=== PATIENT | female | born 1985 | race Caucasian/White ===

== ENCOUNTER 2016-06-11 13:19 | Emergency (ER) | payer OTHER ==
[2016-06-11 14:45] VITALS: BP 120/73
--- NOTE | 2016-06-11 15:38 | UC ---
Back Pain HPI - HPI Summary HPI Summary: 31 female presents with complaints of lower back pain that began yesterday morning 06/11/16. Patient states approximately 5 days ago she experienced some symptoms of urinary frequency and urgency that resolved within 2 days and after drinking a lot of cranberry juice. Patient denies hematuria and current urinary symptoms. Denies due to control essure. Denies pelvic pain, discharge, abdominal pain. No trouble going to the bathroom. Has a history of a kidney infection and she wanted to make sure that wasn't the cause of her current back pain after experiencing the urinary symptoms. No other complaints besides the back pain that she describes as the middle left side that is vague, dull and achey with intermittent sharp pain. Describes it as a "balloon that is filled up in there, not pain". pain 06/22. denies periods of excruciating, significant pain. Took ibuprofen for the pain this morning which did give her relief. Denies fever/chills, recent injury/trauma, bruising, swelling, redness or skin rash. - History of Current Complaint Chief Complaint: UCGU Stated Complaint: KIDNEY COMPLAINT Time Seen by Provider: 06/11/16 15:37 Hx Obtained From: Patient Hx Last Menstrual Period: 06/02/16 ?: No Onset/Duration: Sudden Onset, Lasting Days Severity Initially: Mild Severity Currently: Mild Pain Intensity: 3 Pain Scale Used: 0-10 Numeric Back Pain: Is Discrete @ - left mid-back around kidney area, without radiation Character: Dull, Aching Aggravating: Nothing Alleviating: OTC Meds - ibuprofen Associated Signs And Symptoms: Negative: Weakness, Numbness, Bladder Incontinence, Bowel Incontinence, Pain with Weight Bearing - Risk Factors Cauda Equina Risk Factors: Negative - Allergies/Home Medications Allergies/Adverse Reactions: Allergies Allergy/AdvReac Type Severity Reaction Status Date / Time Amoxicillin AdvReac Intermediate GI Upset Verified 06/11/16 14:45 Home Medications: Home Medications Ibuprofen TAB* [Advil TAB*] 400 mg PO Q6H PRN 06/11/16 [History Confirmed ] PMH/Surg Hx/FS Hx/Imm Hx Cardiovascular History Of: Denies: Cardiac Disorders Respiratory History Of: Denies: Asthma - Surgical History Surgical History: Yes Surgery Procedure, Year, and Place: C-SECT X 3 - Family History Known Family History: Negative: Cardiac Disease, Hypertension, Diabetes - Social History Alcohol Use: Rare Substance Use Type: None Smoking Status (MU): Heavy Every Day Tobacco Smoker Type: Cigarettes Amount Used/How Often: 1/2 PPD Length of Time of Smoking/Using Tobacco: started at age 16 Have You Smoked in the Last Year: Yes When Did the Patient Quit Smoking/Using Tobacco: 11/23/14 Review of Systems Constitutional: Negative Skin: Negative Eyes: Negative ENT: Negative Respiratory: Negative Cardiovascular: Negative Gastrointestinal: Diarrhea - x 2 days Genitourinary: Dysuria, Frequency, Urgency - approximately 5 days ago that has since resolved, no current symptoms Motor: Negative Neurovascular: Negative Musculoskeletal: Negative Neurological: Negative Psychological: Negative All Other Systems Reviewed And Are Negative: Yes Physical Exam Triage Information Reviewed: Yes Appearance: Well-Appearing, No Pain Distress, Well-Nourished Vital Signs: Initial Vital Signs Temp 97.6 F 06/11/16 14:38 Pulse 69 06/11/16 14:38 Resp 16 06/11/16 14:38 BP 120/73 06/11/16 14:38 Pulse Ox 100 06/11/16 14:38 Vital Signs Reviewed: Yes Eyes: Positive: Conjunctiva Clear ENT: Positive: Normal ENT inspection, Hearing grossly normal, Pharynx normal Neck: Positive: Supple, Nontender, No Lymphadenopathy Respiratory: Positive: Chest non-tender, Lungs clear, Normal breath sounds, No respiratory distress, No accessory muscle use Cardiovascular: Positive: RRR, No Murmur, Pulses Normal, Brisk Capillary Refill Abdomen Description: Positive: Nontender, No Organomegaly, Soft. Negative: CVA Tenderness (R), CVA Tenderness (L), Distended, Guarding, Hepatomegaly, Splenomegaly Bowel Sounds: Positive: Present Musculoskeletal: Positive: Strength Intact, ROM Intact, Other: - non tender, no sign of ecchymosis or edema Neurological Exam: Normal Psychological Exam: Normal Skin Exam: Normal Skin: Negative: rashes Back Pain Course/Dx - Course Course Of Treatment: UA was obtained and unremarkable. No sign of UTI, pyelonephritis or nephrolithiasis at this time. due to history and PE findings patient was in agreement to wait out her symptoms for the next few days. aware of worsening or new symptoms to watch out for and return. if persist without change encouraged to follow up [facility] PCP for further evaluation. possibly could have slept the wrong way and related it to recent urinary symptoms that resolved. - Differential Dx/Diagnosis Differential Diagnosis/HQI/PQRI: Strain, Sprain, Other - UTI, Pyelonephritis, nephrolithiasis Provider Diagnoses: back pain of unknown etiology Discharge - Discharge Plan Condition: Stable Disposition: HOME Patient Education Materials: Back Pain (ED) Referrals: William Oleary MD [Primary Care Provider] - Additional Instructions: Take OTC ibuprofen (Advil) for pain and discomfort. Follow-up with your PCP within the next 7 days for further evaluation if symptoms persist. If symptoms worsen (increasing pain, fever/chills, urinary symptoms or discharge) or new symptoms develop please seek medical attention promptly.
== END 2016-06-11 16:05 | disposition home or self-care (01) ==
LOC: UCCORT 13:19
DX: M54.5 Low back pain (principal); Z88.1 Allergy status to other antibiotic agents; Z87.891 Personal history of nicotine dependence
CPT/HCPCS: 99211; G0463

== ENCOUNTER 2016-07-16 14:06 | Emergency (ER) | payer OTHER ==
[2016-07-16 15:46] VITALS: BP 113/79
[2016-07-16] MEDS ORDERED: Ketorolac INJ* 60 MG/2 ML VIAL IM ONE (16:31)
--- NOTE | 2016-07-16 16:31 | UC ---
Headache HPI - HPI Summary HPI Summary: headache right side of her head, now with right sided neck pain x 5 days. States she has tried acetaminophen, ibuprofen and excedrin without relief. Hasn 't taken anything in the past few days because nothing was helping. No hx trauma. No hx migraine. No hx fever. Had the flu a few weeks ago, but felt like she got better from that. Is not photophobic, no aura preceded it. - History Of Current Complaint Chief Complaint: UCHeadache Stated Complaint: HEADACHE Time Seen by Provider: 07/16/16 16:20 Hx Obtained From: Patient Hx Last Menstrual Period: 06/29/16 ?: No Onset/Duration: Gradual Onset, Lasting Days, Still Present Onset Of Symptoms: Gradual Initially Headache Was: Mild Currently Pain Is: Current Pain Scale(0-10)= - 7 Pain Scale Used: 0-10 Numeric Timing: Constant Character: Dull Location of Headache: Parietal Aggravating Factor: Other - movement Allevating Factors: Nothing Associated Signs And Symptoms: Positive: Neck Pain, Neck Stiffness. Negative: Dizziness, Nausea, Vomiting, Sinus Pressure, Fever - Risk Factors SAH Risk Factors: Smoking Meningitis Risk Factors: Negative SDH Risk Factors: Negative Temporal Arteritis Risk Factors: Female, - Allergies/Home Medications Allergies/Adverse Reactions: Allergies Allergy/AdvReac Type Severity Reaction Status Date / Time Amoxicillin AdvReac Intermediate GI Upset Verified 06/11/16 14:45 PMH/Surg Hx/FS Hx/Imm Hx Previously Healthy: Yes Cardiovascular History Of: Denies: Cardiac Disorders Respiratory History Of: Denies: Asthma - Surgical History Surgical History: Yes Surgery Procedure, Year, and Place: C-SECT X 3 - Family History Known Family History: Positive: Cardiac Disease, Other - no hx aneurysms, or migraine Negative: Hypertension, Diabetes - Social History Occupation: Employed Full-time - machine shop Alcohol Use: Occasionally Substance Use Type: None Smoking Status (MU): Heavy Every Day Tobacco Smoker Type: Cigarettes Amount Used/How Often: 1/2 PPD Length of Time of Smoking/Using Tobacco: started at age 16 Have You Smoked in the Last Year: Yes When Did the Patient Quit Smoking/Using Tobacco: 11/23/14 Review of Systems Constitutional: Negative Skin: Negative Eyes: Negative ENT: Negative Respiratory: Negative Cardiovascular: Negative Gastrointestinal: Negative Genitourinary: Negative Motor: Negative Neurovascular: Negative Musculoskeletal: Negative Neurological: Headache Psychological: Negative All Other Systems Reviewed And Are Negative: Yes Physical Exam Triage Information Reviewed: Yes Appearance: Well-Nourished, Ill-Appearing, Pain Distress Vital Signs: Initial Vital Signs Temp 98.2 F 07/16/16 15:36 Pulse 78 07/16/16 15:36 Resp 16 07/16/16 15:36 BP 113/79 07/16/16 15:36 Pulse Ox 100 07/16/16 15:36 Vital Signs Reviewed: Yes Eyes: Positive: Conjunctiva Clear ENT: Positive: Hearing grossly normal, Pharynx normal, TMs normal. Negative: Nasal congestion, Muffled/hoarse voice Neck: Positive: Supple, Tenderness @ - right trapezius Respiratory: Positive: No respiratory distress Cardiovascular: Positive: RRR, Pulses Normal, Brisk Capillary Refill Musculoskeletal: Positive: Strength Intact, ROM Intact Neurological: Positive: Alert, Muscle Tone Normal, Other: - A&O x 3, CN II-XII intact, motor 5/5, sensation intact, gait normal, non focal Psychological Exam: Normal Skin Exam: Normal Re-Evaluation - Re-Evaluation First Eval Re-Evaluation Time: 16:55 - headache is gone. Change: Improved Headache Course/Dx - Differential Dx/Diagnosis Differential Diagnosis/HQI/PQRI: Migraine, Sinus Headache, Tension Headache Provider Diagnoses: acute tension headache Discharge - Discharge Plan Condition: Stable Disposition: HOME Prescriptions: Cyclobenzaprine TAB* [Flexeril 10 MG TAB*] 10 mg PO TID PRN #20 tab PRN Reason: Pain Ibuprofen TAB* [Motrin TAB* 800 MG] 800 mg PO Q6H #20 tab Patient Education Materials: Tension Headache (ED), Acute Headache (ED) Forms: *Work Release Referrals: William Oleary MD [Primary Care Provider] -
[2016-07-16] MEDS ORDERED: Acetaminophen TAB* 325 MG PO ONE (16:46)
== END 2016-07-16 17:06 | disposition home or self-care (01) ==
LOC: UCCORT 14:06
DX: G44.209 Tension-type headache, unspecified, not intractable (principal); Z88.1 Allergy status to other antibiotic agents; F17.210 Nicotine dependence, cigarettes, uncomplicated
CPT/HCPCS: 96372; 99212; A9270-GY; G0463; J1885

== ENCOUNTER 2018-05-26 16:14 | Emergency (ER) | payer BC, OTHER ==
--- NOTE | 2018-05-26 16:28 | UC ---
FLU HPI - HPI Summary HPI Summary: 33 yo female presents with sinus pain/pressure/congestion for 3 days. She has been taking ibuprofen and an OTC cold medicine with no relief. She is concerned because her daughter was recently dx'd with the flu and pt is worried she may have it. Denies fever, fatigue, cough, sore throat, SOB, abdominal pain, n/v. - History of Current Complaint Stated Complaint: FLU LIKE SYMPTOMS Time Seen by Provider: 05/26/18 16:28 Hx Obtained From: Patient Hx Last Menstrual Period: 06/29/16 Onset/Duration: Gradual Onset Severity Currently: Mild Severity Initially: Moderate Pain Intensity: 3 Pain Scale Used: 0-10 Numeric - Allergy/Home Medications Allergies/Adverse Reactions: Allergies Allergy/AdvReac Type Severity Reaction Status Date / Time amoxicillin Allergy GI Upset Verified 05/26/18 16:33 Home Medications: Home Medications Cpm/PE/Dm/Acetaminophen/Guaifn [Tylenol Cold-Flu Day-Nt Caplet] 1 each PO DAILY 05/26/18 [History Confirmed 05/26/18] PMH/Surg Hx/FS Hx/Imm Hx - Additional Past Medical History Additional PMH: None - Surgical History Surgical History: Yes Surgery Procedure, Year, and Place: C-SECT X 3 - Family History Known Family History: Positive: Cardiac Disease, Other - no hx aneurysms, or migraine Negative: Hypertension, Diabetes - Social History Alcohol Use: Occasionally Substance Use Type: None Smoking Status (MU): Heavy Every Day Tobacco Smoker Type: Cigarettes Amount Used/How Often: 1/2 PPD Length of Time of Smoking/Using Tobacco: started at age 16 Have You Smoked in the Last Year: Yes When Did the Patient Quit Smoking/Using Tobacco: 11/23/14 Review of Systems All Other Systems Reviewed And Are Negative: Yes Constitutional: Positive: Negative Skin: Positive: Negative Eyes: Positive: Negative ENT: Positive: Nasal Discharge, Sinus Congestion, Sinus Pain/Tenderness Respiratory: Positive: Negative Cardiovascular: Positive: Negative Gastrointestinal: Positive: Negative Neurovascular: Positive: Negative Neurological: Positive: Negative Psychological: Positive: Negative Physical Exam - Summary Physical Exam Summary: GENERAL: NAD. WDWN. No pain distress. SKIN: No rashes, sores, lesions, or open wounds. HEENT: Head: AT/NC Eyes: EOM intact. Conjunctiva clear without inflammation or discharge. Ears: Hearing grossly normal. TMs intact, no bulging, erythema, or edema. Nose: Nasal mucosa pink and moist. NTTP maxillary and frontal sinus. Throat: Posterior oropharynx without exudates, erythema, or tonsillar enlargement. Uvula midline. NECK: Supple. Nontender. No lymphadenopathy. CHEST: CTAB. No r/r/w. No accessory muscle use. Breathing comfortably and in no distress. CV: RRR. Without m/r/g. Pulses intact. Cap refill <2seconds NEURO: Alert. PSYCH: Age appropriate behavior. Triage Information Reviewed: Yes Vital Signs: Vital Signs: Temp Pulse Resp BP Pulse Ox 97.9 F 84 16 135/84 100 05/26/18 16:29 05/26/18 16:29 05/26/18 16:29 05/26/18 16:29 05/26/18 16:29 Laboratory Tests 05/26/18 16:39 Influenza A (Rapid) Negative Influenza B (Rapid) Negative Vital Signs Reviewed: Yes Flu Course/Dx - Course Course Of Treatment: Suspect viral sinusitis. Advised to try OTC mucinex, flonase, and zyrtec. F/u if symptoms do not improve. - Differential Dx/Diagnosis Provider Diagnosis: Viral sinusitis Discharge - Sign-Out/Discharge Documenting (check all that apply): Patient Departure All imaging exams completed and their final reports reviewed: No Studies - Discharge Plan Condition: Stable Disposition: HOME Patient Education Materials: Viral Syndrome (ED) Forms: *Work Release Referrals: William Oleary MD [Primary Care Provider] - Additional Instructions: If you develop a fever, shortness of breath, chest pain, new or worsening symptoms - please call your PCP or go to the ED. - Billing Disposition and Condition Condition: STABLE Disposition: Home
[2018-05-26 16:32] VITALS: BP 135/84
[2018-05-26 16:51] LABS: Influenza A Molecular NEGATIVE (Negative); Influenza B Molecular NEGATIVE (Negative)
== END 2018-05-26 17:01 | disposition home or self-care (01) ==
LOC: UCCORT 16:14
DX: J32.9 Chronic sinusitis, unspecified (principal); B97.89 Other viral agents as the cause of diseases classified elsewhere; F17.210 Nicotine dependence, cigarettes, uncomplicated; Z88.0 Allergy status to penicillin
CPT/HCPCS: 99211; G0463

== ENCOUNTER 2018-08-27 15:35 | Emergency (ER) | payer BC ==
[2018-08-27 16:22] VITALS: BP 124/71
--- NOTE | 2018-08-27 17:09 | UC ---
Cardiac HPI - HPI Summary HPI Summary: Pt c/o sudden onset of RUQ pain that occurred suddenly after lifting arm to put arm through arm hole of shirt this morning. Pt states that pain radiates around toto mid back. Movement makes the pain worse. - History of Current Complaint Chief Complaint: UCChestPain Stated Complaint: RIGHT SIDE/BACK PAIN Time Seen by Provider: 08/27/18 16:51 Hx Obtained From: Patient Hx Last Menstrual Period: today Onset/Duration: Sudden Onset, Lasting Hours Timing: Constant Initial Severity: Moderate Current Severity: Mild Pain Intensity: 6 Chest Pain Location: Discrete at: - RUQ of abdomen Aggravating Factor(s): Position, Movement Alleviating Factor(s): Rest, Position Associated Signs & Symptoms: Positive: Back Pain - Risk Factors Pulmonary Embolism Risk Factors: Smoking Cardiac Risk Factors: Smoking Atrial Fibrillation: Negative TAD Risk Factors: Smoking - Allergy/Home Medications Allergies/Adverse Reactions: Allergies Allergy/AdvReac Type Severity Reaction Status Date / Time amoxicillin Allergy GI Upset Verified 08/27/18 16:22 PMH/Surg Hx/FS Hx/Imm Hx Previously Healthy: Yes - Surgical History Surgical History: Yes Surgery Procedure, Year, and Place: C-SECT X 3 - Family History Known Family History: Positive: Cardiac Disease, Other - no hx aneurysms, or migraine Negative: Hypertension, Diabetes - Social History Occupation: Employed Full-time Lives: With Family Alcohol Use: Occasionally Substance Use Type: None Smoking Status (MU): Heavy Every Day Tobacco Smoker Type: Cigarettes Amount Used/How Often: 1/2 PPD Length of Time of Smoking/Using Tobacco: started at age 16 Have You Smoked in the Last Year: Yes When Did the Patient Quit Smoking/Using Tobacco: 11/23/14 - Immunization History Vaccination Up to Date: Yes Review of Systems All Other Systems Reviewed And Are Negative: Yes Constitutional: Positive: Negative Skin: Positive: Negative Eyes: Positive: Negative ENT: Positive: Negative Respiratory: Positive: Negative Cardiovascular: Positive: Negative Gastrointestinal: Positive: Abdominal Pain - RUQ Genitourinary: Positive: Negative Motor: Positive: Negative Neurovascular: Positive: Negative Musculoskeletal: Positive: Myalgia - RUQ Neurological: Positive: Negative Psychological: Positive: Negative Is Patient Immunocompromised?: No Physical Exam Triage Information Reviewed: Yes Appearance: Well-Appearing Vital Signs: Initial Vital Signs Temp 98.3 F 05/15/19 16:13 Pulse 69 08/27/18 16:13 Resp 18 08/27/18 16:13 BP 124/71 08/27/18 16:13 Pulse Ox 100 08/27/18 16:13 Vital Signs Reviewed: Yes Eye Exam: Normal ENT Exam: Normal Dental Exam: Normal Neck exam: Normal Respiratory Exam: Normal Respiratory: Positive: Chest non-tender Cardiovascular Exam: Normal Abdominal Exam: Other - RUQ midclavicular, no hernia appreciated Bowel Sounds: Positive: Present Musculoskeletal Exam: Normal Neurological Exam: Normal Psychological Exam: Normal Skin: Positive: Rashes - Clinical Impression Provider Diagnosis: Abdominal pain Discharge - Sign-Out/Discharge Documenting (check all that apply): Patient Departure All imaging exams completed and their final reports reviewed: No Studies - Discharge Plan Condition: Stable Disposition: HOME Patient Education Materials: Musculoskeletal Pain (ED), Safe Use of NSAIDs (ED) Referrals: [facility] [place] [facility] [Outside] - If Needed No Primary Care Phys,NOPCP [Primary Care Provider] - - Billing Disposition and Condition Condition: STABLE Disposition: Home - Attestation Statements Provider Attestation: This patient was not seen by me. I was available for consult.
== END 2018-08-27 17:19 | disposition home or self-care (01) ==
LOC: UCCORT 15:35
DX: R10.11 Right upper quadrant pain (principal); F17.210 Nicotine dependence, cigarettes, uncomplicated
CPT/HCPCS: 99211; G0463

== ENCOUNTER 2019-03-18 15:35 | Emergency (ER) | payer BC ==
[2019-03-18 16:03] VITALS: BP 123/82
--- NOTE | 2019-03-18 16:32 | UC ---
Skin Complaint HPI - HPI Summary HPI Summary: Patient is a 33yo female presenting with c/o "uncomfortable blister/rash" behind left shoulder that she noticed this morning. Denies pain, but notes discomfort when touching it or when her bra strap rubs on it. Denies drainage. Denies itching, burning, tingling. Denies any lesions elsewhere on the body. Denies shoulder/muscle pain. Denies fever and chills. Denies any new soaps, detergents, lotions, etc. Denies any trauma or injury to the skin. Denies anything like this in the past. Notes h/o chickenpox but denies shingles. States it has not worsened since this morning. - History of Current Complaint Chief Complaint: UCSkin Stated Complaint: SKIN COMPLAINT Hx Obtained From: Patient Hx Last Menstrual Period: 03/08/19 Onset/Duration: Sudden Onset, Lasting Hours Current Severity: None Pain Intensity: 0 Pain Scale Used: 0-10 Numeric - Allergy/Home Medications Allergies/Adverse Reactions: Allergies Allergy/AdvReac Type Severity Reaction Status Date / Time amoxicillin Allergy GI Upset Verified 03/18/19 16:00 PMH/Surg Hx/FS Hx/Imm Hx Previously Healthy: Yes - Surgical History Surgical History: Yes Surgery Procedure, Year, and Place: C-SECT X 3 - Family History Known Family History: Positive: Cardiac Disease, Other - no hx aneurysms, or migraine, Non-Contributory Negative: Hypertension, Diabetes - Social History Alcohol Use: Occasionally Substance Use Type: None Smoking Status (MU): Heavy Every Day Tobacco Smoker Type: Cigarettes Amount Used/How Often: 1/2 PPD Length of Time of Smoking/Using Tobacco: started at age 16 Have You Smoked in the Last Year: Yes When Did the Patient Quit Smoking/Using Tobacco: 11/23/14 - Immunization History Vaccination Up to Date: Yes Review of Systems All Other Systems Reviewed And Are Negative: No Constitutional: Positive: Negative. Negative: Fever, Chills Skin: Positive: Rash - redness with central blister of L shoulder ENT: Positive: Negative Respiratory: Positive: Negative Cardiovascular: Positive: Negative Musculoskeletal: Positive: Negative, Myalgia - notes b/l muscle soreness from shoveling. Negative: Arthralgia, Decreased ROM, Edema Neurological: Positive: Negative. Negative: Paresthesia, Numbness Physical Exam Triage Information Reviewed: Yes Appearance: Well-Appearing, No Pain Distress, Well-Nourished Vital Signs: Initial Vital Signs Temp 97.3 F 03/18/19 16:00 Pulse 91 03/18/19 16:00 Resp 16 03/18/19 16:00 BP 123/82 03/18/19 16:00 Pulse Ox 98 03/18/19 16:00 Vital Signs Reviewed: Yes Eyes: Positive: Conjunctiva Clear ENT: Positive: Hearing grossly normal Neck: Positive: Supple Respiratory Exam: Normal Respiratory: Positive: Lungs clear, Normal breath sounds, No respiratory distress Cardiovascular Exam: Normal Cardiovascular: Positive: RRR Musculoskeletal: Positive: Strength Intact, ROM Intact, No Edema, Other: - mild tenderness to palpation of L trapezius closer to midline Neurological: Positive: Alert Psychological: Positive: Age Appropriate Behavior Skin: Positive: Other - ~1cm bulla surrounded by erythema extending 2cm proximally. No drainage or warmth. mild tenderness to palpation of bulla. Course/Dx - Course Course Of Treatment: I treated patient with Keflex to cover possible bacterial source of skin lesion. Instructed to monitor the lesion and educated on s/s of shingles. Instructed to take valtrex if she experiences worsening s/s indicative of shingles. Instructed to follow up with pcp if does not resolve within 7 days. Patient voiced understanding and agreed with treatment plan. Dr. Olivares also examined patient and agreed with treatment plan. - Differential Diagnoses - Skin Complaint Differential Diagnoses: Cellulitis, Contact Dermatitis, Varicella Zoster - Diagnoses Provider Diagnosis: Skin bulla, Skin redness or inflammation Discharge ED - Sign-Out/Discharge Documenting (check all that apply): Patient Departure All imaging exams completed and their final reports reviewed: No Studies - Discharge Plan Condition: Stable Disposition: HOME Prescriptions: Cephalexin CAP* [Keflex CAP*] 500 mg PO TID #15 cap ValACYclovir (*) [Valtrex 1 GM(*)] 1 gm PO TID #21 tab Patient Education Materials: Shingles (ED), Cellulitis (ED) Referrals: No Primary Care Phys,NOPCP [Primary Care Provider] - Additional Instructions: As discussed, it is unclear what has caused your blister. It is recommended that you take Keflex as prescribed to treat a possible bacterial source. If the lesion spreads over the next day or two and begins to look more like shingles as we discussed, it is recommended that you begin taking the antiviral medication as well. Keep the area clean and dry. Try to avoid friction as much as possible and do not purposefully pop the blister. Follow up with your PCP if it does not resolve within 7 days. - Billing Disposition and Condition Condition: STABLE Disposition: Home
== END 2019-03-18 17:08 | disposition home or self-care (01) ==
LOC: UCCORT 15:35
DX: R23.8 Other skin changes (principal); F17.210 Nicotine dependence, cigarettes, uncomplicated; Z88.0 Allergy status to penicillin
CPT/HCPCS: 99212; G0463